=== PATIENT | female | born 1935 | race Caucasian/White ===

== ENCOUNTER 2020-11-08 06:14 | Inpatient (IN) | payer MEDICARE ==
[~2020-11-08] VITALS: Ht 160 cm; Wt 55.8 kg
[2020-11-08 08:09] LABS: HEMOGLOBIN 10.8 gm/dl (12.3-15.3); RED BLOOD COUNT 4.13 M/UL (4.00-5.10); WHITE BLOOD COUNT 12.6 K/UL (4.5-11.0)
[2020-11-08 08:24] LABS: BUN/CREATININE RATIO 38 (0-10)
[2020-11-08] MEDS ORDERED: ELIQUIS5 MG PO (11:53)
[2020-11-09 06:45] LABS: RED BLOOD COUNT 3.78 M/UL (4.00-5.10)
[2020-11-09 07:01] LABS: BUN/CREATININE RATIO 31 (0-10)
[2020-11-10 03:49] LABS: RED BLOOD COUNT 3.42 M/UL (4.00-5.10); WHITE BLOOD COUNT 6.4 K/UL (4.5-11.0)
[2020-11-10 04:02] LABS: BUN/CREATININE RATIO 22 (0-10)
[2020-11-10] MEDS ORDERED: GAS RELIEF80 MG PO (13:30)
--- NOTE | 2020-11-10 19:33 | NUR ---
SPOKE WITH DR RIZZO, CANCEL DC FOR NOW DUE TO PATIENT NOT BEING ABLE TO GET RIDE HOME, CAB CANCELED AND FAMILY UNAVAILABLE TO TAKE PT HOME. OK TO GIVE PATIENT PO MEDS TONIGHT.
--- NOTE | 2020-11-10 21:01 | NUR ---
2100- PATIENT RANG NURSING LIGHT AND STATED FOR NURSES TO GET THERE SORRY HINDENDS IN THE ROOM AND CLEAN HER UP. SPOKE WITH PATIENT STATING IT WAS UNACCEPTABLE FOR HER TO DISPLAY THAT TYPE OF BEHAVIOR TOWARD NURSING STAFF. PT BECAME VERY UPSET, AND THEN APOLOGIZED FOR HER BEHAVIOR.
--- NOTE | 2020-11-10 22:20 | NUR ---
RECEIVED REPORT FROM ADRIAN SIFUENTES FROM 4th FLOOR. RECEIVED PT TO ROOM 6118. HEART RATE 100, RESP 22, BP 121/74, O2 SATS 95% ON ROOM AIR. NO ACUTE DISTRESS NOTED. LUNGS CLEAR WITH BREATH SOUNDS EQUAL KIMBERLY. POSITIVE PERIPHERAL PULSES NOTED. 1+ EDEMA NOTED OF LOWER LEGS AND FEET. IV SITE IS #20G LEFT POSTERIOR FOREARM THAT IS SALINE LOCKED. WILL CONTINUE TO MONITOR PT.
[2020-11-11] MEDS ORDERED: METOPROLOL SUCC50 MG PO (19:41)
[2020-11-11] MEDS ORDERED: FAMOTIDINE20 MG PO (19:41)
[2020-11-11] MEDS ORDERED: ALENDRONATE SOD70 MG PO (19:41)
[2020-11-11] MEDS ORDERED: POTASSIUM CHLO20 ME2 PO (19:42)
[2020-11-11] MEDS ORDERED: METOPROLOL SUC100 MG PO (19:42)
[2020-11-11] MEDS ORDERED: AMITIZA24 MCG PO (19:43)
[2020-11-11] MEDS ORDERED: FUROSEMIDE40 MG PO (19:43)
[2020-11-11] MEDS ORDERED: ATORVASTATIN CA40 MG PO (19:44)
[2020-11-11] MEDS ORDERED: CELEXA 20MG TAB20 MG PO (19:44)
[2020-11-11] MEDS ORDERED: RESTORIL 30 MG30 MG PO (19:45)
[2020-11-11] MEDS ORDERED: TAPAZOLE 10 MG10 MG PO (19:46)
[2020-11-11] MEDS ORDERED: PROTONIX 40 MG40 M1 PO (19:47)
[2020-11-11] MEDS ORDERED: ROPINIROLE HC0.25 MG PO (19:47)
[2020-11-12 03:48] LABS: HEMOGLOBIN 9.3 gm/dl (12.3-15.3); RED BLOOD COUNT 3.58 M/UL (4.00-5.10); WHITE BLOOD COUNT 5.6 K/UL (4.5-11.0)
[2020-11-12 04:10] LABS: BUN/CREATININE RATIO 14 (0-10)
[2020-11-13 02:55] LABS: HEMOGLOBIN 9.9 gm/dl (12.3-15.3); RED BLOOD COUNT 3.72 M/UL (4.00-5.10)
[2020-11-13 02:57] LABS: WHITE BLOOD COUNT 7.8 K/UL (4.5-11.0)
[2020-11-13 03:27] LABS: BUN/CREATININE RATIO 21 (0-10)
[2020-11-14 02:57] LABS: BUN/CREATININE RATIO 15 (0-10)
[2020-11-15 03:45] LABS: HEMOGLOBIN 9.5 gm/dl (12.3-15.3); RED BLOOD COUNT 3.54 M/UL (4.00-5.10); WHITE BLOOD COUNT 8.2 K/UL (4.5-11.0)
[2020-11-15 04:14] LABS: BUN/CREATININE RATIO 15 (0-10)
[2020-11-15] MEDS ORDERED: DIGOXIN125 MCG PO (09:47)
[2020-11-15] MEDS ORDERED: ATORVASTATIN CA40 MG PO (09:47)
[2020-11-15] MEDS ORDERED: AUGMENTIN 875-1 EACH PO (09:47)
[2020-11-15] MEDS ORDERED: LOPRESSOR 50 MG50 MG PO (09:47)
[2020-11-15] MEDS ORDERED: FERROUS GLUCON324 M1 PO (09:47)
[2020-11-15] MEDS ORDERED: STIMULANT LAXA1 EACH PO (09:47)
--- NOTE | 2020-11-15 14:42 | NUR ---
[employer] TOLD THE PT AND MYSELF THAT [facility] PHONE LINES ARE DOWN AND THEY WOULD BE TO SEE PT WHEN THE ROADS CLEARED. MANDO SAID THERE WAS NO NEED FOR ME TO CALL REPORT BECAUSE OF THE ISSUE
--- NOTE | 2020-11-15 15:06 | NUR ---
INFORMED PT'S DAUGHTER RAY THAT WE WHERE TAKING HER DOWNSTAIRS TO PLACE HER IN THE CAB.
== END 2020-11-15 15:00 | disposition home health service (06) | DRG 388 ==
LOC: MED SURG 4 06:14 → PROG CARE 06:46 → MED SURG 4 06:46 → PROG CARE 11-10 22:05 → M/S 11-13 15:56
PROVIDERS: Internal Medicine; Internal Medicine Infectious Disease; Physician Assistant Medical; ADMIT Hospitalist
PROC: B24BZZZ Ultrasonography of Heart with Aorta (ICD-10-PCS; principal; 2020-11-08)
PROC: 8E0ZXY6 Isolation (ICD-10-PCS; 2020-11-08)
DX: K56.51 Intestinal adhesions [bands], with partial obstruction (principal); J18.9 Pneumonia, unspecified organism; U07.1 COVID-19; I48.20 Chronic atrial fibrillation, unspecified; M96.842 Postprocedural seroma of a musculoskeletal structure following a musculoskeletal system procedure; E83.42 Hypomagnesemia; D50.9 Iron deficiency anemia, unspecified; E05.90 Thyrotoxicosis, unspecified without thyrotoxic crisis or storm; M19.90 Unspecified osteoarthritis, unspecified site; Z96.641 Presence of right artificial hip joint; M51.36 Other intervertebral disc degeneration, lumbar region; I25.10 Atherosclerotic heart disease of native coronary artery without angina pectoris; I25.5 Ischemic cardiomyopathy; Z85.528 Personal history of other malignant neoplasm of kidney; Z86.711 Personal history of pulmonary embolism; Z90.710 Acquired absence of both cervix and uterus; Z86.73 Personal history of transient ischemic attack (TIA), and cerebral infarction without residual deficits; Z90.49 Acquired absence of other specified parts of digestive tract; Z88.6 Allergy status to analgesic agent; Z88.5 Allergy status to narcotic agent; Z88.7 Allergy status to serum and vaccine; Z95.5 Presence of coronary angioplasty implant and graft; Z88.8 Allergy status to other drugs, medicaments and biological substances; Z82.49 Family history of ischemic heart disease and other diseases of the circulatory system; Z87.891 Personal history of nicotine dependence; Z79.4 Long term (current) use of insulin; Z79.899 Other long term (current) drug therapy
CPT/HCPCS: ECHO; 36415; 71045; 71046; 74018; 80048; 80053; 82607; 82728; 82746; 83540; 83550; 83735; 83880; 84132; 84439; 84443; 85025; 85027; 85610; 85730; 86140; 93005; 93306; 97116-GP-CQ; 97162; C9113; J1160; J1650; J1756; J1940; J2270; J2543; J3475; J3480; Q9963; U0002